=== PATIENT | female | born 1930 | race Caucasian/White ===

== ENCOUNTER 2019-01-13 19:30 | Emergency (ER) | payer OTHER ==
[~2019-01-13] VITALS: Ht 149.9 cm; Wt 54.0 kg
[2019-01-13] MEDS ORDERED: NACL 0.9% 1,000 ML IV SCH (19:38)
--- NOTE | 2019-01-13 19:45 | NUR ---
88 YO F [place] FROM HOME FOR DIAPHORETIC/HYPOTENSIVE EPISODE. PER EMS, PT HAD ENDOSCOPIC PROCEDURE AT [facility] FOR GERD/POLYPS. PT STATED SHE FELT FINE INITIALLY BUT STARTING AROUND 1900 PT STARTED TO FEEL HOT FLASHES AND BECAME SWEATY. PT STATED SHE HAD BLOODY VOMIT X SEVERAL TIMES AND DARK, LOOSE STOOL X 1. PT ARRIVES AWAKE, A/O X 4. DENIES LOC. PT STATES SHE FEELS MUCH BETTER NOW AFTER THROWING UP. DENIES ABD PAIN, CP, SOB. -- PT AWAKE, A/O X 4. CALM, COOPERATIVE. SPEAKS IN CLEAR, FULL SENTENCES. ANSWERS QUESTIONS WITHOUT DIFFICULTY. -- SKIN PINK, WARM, DRY. BREATHING EVEN, UNLABORED. PMH-- HTN, GERD, HIGH CHOLESTEROL Addendum: 01/13/19 at 2318 by [facility] INITIAL BP IN FIELD: 73/44. PT RECEIVED 500 ML BOLUS EN ROUTE.
[2019-01-13 19:50] VITALS: BP 97/54
--- NOTE | 2019-01-13 19:50 | NUR ---
EMT PERFORMING EKG AT BEDSIDE.
--- NOTE | 2019-01-13 19:56 | NUR ---
XRAY AT BEDSIDE.
--- NOTE | 2019-01-13 20:01 | NUR ---
PHLEB DRAWING LABS AT BEDSIDE.
--- NOTE | 2019-01-13 20:01 | NUR ---
DAUGHTER AT BEDSIDE.
--- NOTE | 2019-01-13 20:20 | NUR ---
PT TAKEN TO RR VIA WC WITH RN ASSIST TO COLLECT URINE SAMPLE. PT PLACED ON TOILET; PT STATES "I FEEL LIKE I'M ABOUT TO HAVE DIARRHEA". PRIVACY PROVIDED. CALL LIGHT PLACED WITHIN REACH.
[2019-01-13 20:24] LABS: BASOPHILS % (AUTO) 0.3 % (0.0-2.0); EOSINOPHILS % (AUTO) 0.3 % (0.0-4.0); HEMATOCRIT 33.2 % (36-48); HEMOGLOBIN 10.9 g/dL (12.0-16.0); LYMPHOCYTES # (AUTO) 1.2 K/uL (2.5-16.5); LYMPHOCYTES % (AUTO) 8.6 % (20.5-51.1); MEAN CORPUSCULAR HEMOGLOBIN 31 pg (27-31); MEAN CORPUSCULAR HGB CONC 33 g/dL (33-37); MEAN CORPUSCULAR VOLUME 92.6 fL (80-94); MONOCYTES # (AUTO) 0.7 K/uL (0.8-1.0); MONOCYTES % (AUTO) 5.1 % (1.7-9.3); NEUTROPHILS # (AUTO) 11.6 K/uL (1.8-7.7); NEUTROPHILS % (AUTO) 85.7 % (42.2-75.2); PLATELET COUNT (AUTO) 258 K/uL (140-450); RED BLOOD CELL COUNT(AUTO) 3.58 MIL/uL (4.20-5.40); RED CELL DISTRIBUTION WIDTH 14.1 % (11.6-13.7); WHITE BLOOD COUNT (AUTO) 13.6 K/uL (4.8-10.8)
--- NOTE | 2019-01-13 20:30 | NUR ---
PT RETURNED TO BED VIA WC. NO URINE COLLECTED. PT ONLY HAD LOOSE STOOL. PT STATES SHE STARTED TO FEEL "HOT FLASHES AND SWEATY" IN RR.
--- NOTE | 2019-01-13 20:35 | NUR ---
DR. ARIAS EVALUATING AT BEDSIDE.
[2019-01-13 20:43] LABS: ANION GAP 12.5 (8-16); CHLORIDE 104 mmol/L (98-107); CREATININE 0.9 mg/dL (0.6-1.3); GLUCOSE 154 mg/dL (74-106); POTASSIUM 3.5 mmol/L (3.5-5.1); SODIUM SERUM 139 mmol/L (136-145); UREA NITROGEN, BLOOD 47 mg/dL (7-18)
--- NOTE | 2019-01-13 20:50 | NUR ---
Note undone in EDM - 01/13/19 at 2150 by [facility] 88 YO F [place] FROM HOME FOR DIAPHORETIC/HYPOTENSIVE EPISODE. PER EMS, PT HAD ENDOSCOPIC PROCEDURE AT [place] FOR GERD/POLYPS. PT STATED SHE FELT FINE INITIALLY BUT STARTING AROUND 1900 PT STARTED TO FEEL HOT FLASHES AND BECAME SWEATY. PT STATED SHE HAD BLOODY VOMIT X SEVERAL TIMES AND DARK, LOOSE STOOL X 1. PT ARRIVES AWAKE, A/O X 4. DENIES LOC. PT STATES SHE FEELS MUCH BETTER NOW AFTER THROWING UP. DENIES ABD PAIN, CP, SOB. -- PT AWAKE, A/O X 4. CALM, COOPERATIVE. SPEAKS IN CLEAR, FULL SENTENCES. ANSWERS QUESTIONS WITHOUT DIFFICULTY. -- SKIN PINK, WARM, DRY. BREATHING EVEN, UNLABORED. PMH-- HTN, GERD, HIGH CHOLESTEROL
[2019-01-13 20:56] LABS: ALBUMIN 2.5 g/dL (3.4-5.0); ASPARTATE AMINOTRANSFERASE 14 U/L (15-37); TOTAL BILIRUBIN 0.5 mg/dL (0.0-1.0)
--- NOTE | 2019-01-13 22:00 | NUR ---
PT AWAKE, ALERT. RESTING COMFORTABLY WITH FAMILY AT BEDSIDE AND VSS. DENIES PAIN/DISCOMFORT AT THIS TIME. NO COMPLAINTS AT THIS TIME.
[2019-01-13 22:39] LABS: APPEARANCE,URINE CLEAR (CLEAR); BILIRUBIN,URINE NEGATIVE (NEGATIVE); BLOOD, URINE 1+ (NEGATIVE); COLOR,URINE YELLOW (YELLOW); LEUKOCYTE ESTERASE ,URINE TRACE (NEGATIVE); NITRITE, URINE POSITIVE (NEGATIVE); UGLUCOSE NEGATIVE (NEGATIVE)
[2019-01-13] MEDS ORDERED: ONDANSETRON 4 MG/2 ML VIAL IVP ONE (22:45)
[2019-01-13] MEDS ORDERED: cefTRIAXone 1,000 MG VIAL ONE (22:51)
[2019-01-13 23:25] LABS: RBC,URINE 0-5 /HPF (0-5)
[2019-01-13 23:26] LABS: WBC,URINE 0-5 /HPF (0-5)
--- NOTE | 2019-01-13 23:27 | NUR ---
PT RESTING COMFORTABLY WITH FAMILY AT BEDSIDE WITH VSS. DENIES PAIN/DISCOMFORT AT THIS TIME. AWAITING TRANSPORT TO [facility].
--- NOTE | 2019-01-13 23:33 | NUR ---
Patient to be transferred to [facility]. Is being transferred due to insurance request. Receiving facility has accepting physician and available space. ER physician has signed transfer form. Patient or responsible libertarian has agreed to transfer and signed form. Patient belongings inventoried and will be sent with patient. Copy of nursing notes, lab reports, EKG, Physicians Orders and X-rays to be sent with patient. Report called to CONG Kelly at receiving facility. [facility] ambulance service has been called for transfer. ETA is 10 mins.
[2019-01-13 23:44] VITALS: BP 103/66
--- NOTE | 2019-01-13 23:44 | NUR ---
REPORT GIVEN TO [facility]. PT TRANSFERED TO [facility]. LEFT VIA [facility] TRANSPORT TO [facility].
== END 2019-01-13 23:44 | disposition short-term general hospital (02) ==
LOC: MED 19:30
DX: N39.0 Urinary tract infection, site not specified (principal); K92.2 Gastrointestinal hemorrhage, unspecified; I95.9 Hypotension, unspecified; I10 Essential (primary) hypertension; Z90.49 Acquired absence of other specified parts of digestive tract; Z90.710 Acquired absence of both cervix and uterus; Z90.89 Acquired absence of other organs
CPT/HCPCS: 36415; 71045; 80053; 81001; 82550; 83605; 83880; 84484; 85025; 85610; 85730; 86886; 86900; 86901; 87040; 87086; 93005; 96361; 96365; 96375; 99285; J0696; J2405; J7030; Q0092